=== PATIENT | male | born 1975 | race Caucasian/White ===

== ENCOUNTER 2024-05-16 19:49 | Emergency (ER) | payer OTHER, SELFPAY ==
[2024-05-16 19:53] VITALS: BP 135/78; PULSE 82; TEMP 36.7; O2SAT 95; BMI 33.9
--- NOTE | 2024-05-16 20:02 | XR_ITS ---
The [address] [address] Patient Name: ALEXANDR HANDLEY MRN: [id number] date: 1975 Sex: M Assigned Patient Location: ED.MAIN Current Patient Location: Accession/Order Number: [id number] Exam Date: 05/16/2024 20:20 Report Date: 05/16/2024 21:50 At the request of: JOSUE ROTHMAN Procedure: XR knee RT 4V EXAM: XR knee RT 4V , 05/16/2024 HISTORY: Right knee pain COMPARISON: None. TECHNIQUE: X-rays of the right knee, 4 views. FINDINGS: No fracture or dislocation right knee. Mild soft tissue swelling anteriorly. Small right knee joint effusion. Bones are well-mineralized. XR/XR knee RT 4V IMPRESSION: No fracture or dislocation right knee. Small right knee joint effusion. Electronically authenticated by: SAVANNAH HUGHES Date: 05/16/2024 21:50
--- NOTE | 2024-05-16 20:06 | ED.LOWEXI1 ---
HPI HPI - Extremity Injury (Lower) General Chief Complaint: Extremity Injury, Lower Stated Complaint: [facility] Lower Extremity Injury Time Seen by Provider: 05/16/24 19:51 Source: patient Mode of arrival: walk-in Limitations: no limitations History of Present Illness HPI Narrative: Patient is a 49-year-old male who presents to the emergency department from his place of employment for hyperextension injury to the right knee. He states he came down from a ladder and slipped on the floor and his right knee went out from underneath him and he hyperextended it. He complains of a popping sensation and pain to the right posterior knee. No other associated injuries or direct fall/injury. He received ibuprofen, ice and knee immobilizer from his employer and was brought to the ER. He states he is able to ambulate but reports pain with flexion of the right knee. Related Data Previous Rx's ?Medication ?Instructions ?Recorded methylprednisolone 4 mg tablets in See Rx Instructions .Route 05/16/24 a dose pack (Medrol (Nima)) .COMPLEX #21 ea Allergies Allergy/AdvReac Type Severity Reaction Status Date / Time No Known Drug Allergies Allergy Verified 05/16/24 19:57 Opioid HPI Opioid Management Most Recent Pain and Opioid Data: No Data to Display Review of Systems ROS Constitutional Denies: fever or chills Ears, nose, mouth, and throat Denies: throat pain or nasal congestion Cardiovascular Denies: chest pain Respiratory Denies: shortness of breath Gastrointestinal Denies: abdominal pain, nausea or vomiting Musculoskeletal Reports: extremity pain and extremity swelling; Denies: back pain or neck pain Integumentary/Breast Denies: rash Neurological Denies: numbness in extremities or weakness in extremities Hematologic/Lymphatic Denies: easy bruising or easy bleeding PFSH PFSH Social History Little interest or pleasure in doing things: not at all Feeling down, depressed, or hopeless: not at all Exam Narrative Exam Narrative: Gen.: Awake, alert, in no distress Head: Normocephalic, atraumatic ENT: Moist mucous membranes Respiratory: No respiratory distress Extremities: Limited flexion of the right knee, normal dorsiflexion and plantarflexion of the right lower extremity. No bony tenderness of the right ankle. No bony tenderness of the right anterior tibia, no patellar laxity or anterior knee tenderness. No obvious deformity, joint effusion or ecchymosis noted. Psych: Normal mood and affect Neuro: No focal neuro deficit Skin: Warm, dry, intact Constitutional Vital Signs, click to edit/add: Last Vital Signs Temp 98.1 F 05/16/24 19:53 Pulse 82 05/16/24 19:53 BP 135/78 05/16/24 19:53 Pulse Ox 95 05/16/24 19:53 O2 Del Method Room Air 05/16/24 19:53 Course Vital Signs Vital signs: Vital Signs Temperature 98.1 F 05/16/24 19:53 Pulse Rate 82 05/16/24 19:53 Blood Pressure 135/78 05/16/24 19:53 Pulse Oximetry 95 05/16/24 19:53 Oxygen Delivery Method Room Air 05/16/24 19:53 Temperature 98.1 F 05/16/24 19:53 Pulse Rate 82 05/16/24 19:53 Blood Pressure 135/78 05/16/24 19:53 Pulse Oximetry 95 05/16/24 19:53 Oxygen Delivery Method Room Air 05/16/24 19:53 MDM - Extremity Injury (Lower) MDM Narrative Medical decision making narrative: Patient with exam consistent with hyperextension injury, x-rays are unremarkable, reviewed by myself and attending physician. Patient placed in a knee brace. He has crutches and knee immobilizer from his employer. He was given prednisone in the ER and discharged with a prescription for Medrol Dosepak to follow-up with his occupational health at his employer. He is neurovascularly intact at discharge. He was also given a referral for orthopedics if needed. Rest, ice, elevate. Return to the ER if symptoms change or worsen. He was provided with light duty restrictions for work for the next 5 days. Medical Records Attestation: I reviewed the patient's medical records. Imaging Data XR knee: Attestation: I have reviewed the pertinent imaging results. Discharge Plan Discharge Chief Complaint: Extremity Injury, Lower Clinical Impression: Hyperextension injury of right knee Patient Disposition: Home, Self-Care Time of Disposition Decision: 21:13 Condition: Good Prescriptions / Home Meds: New methylprednisolone [Medrol (Nima)] 4 mg tablets,dose pack See Rx Instructions .ROUTE .COMPLEX Qty: 21 0RF Rx Instructions: Taper as directed Print Language: Mohawk Instructions: Crutch Instructions (ED), Knee Pain (ED) Additional Instructions: Follow up with occupational health at the [facility]; Orthopedic follow up if needed Referrals: Physician,Non-Staff, [Primary Care Provider] - 1 week Juan Hassan MD [Physician] - As needed
[2024-05-16] MEDS: PREDNISONE 20 MG TABLET 60 MG PO (20:17)
== END 2024-05-16 21:40 | disposition home or self-care (01) ==
PROVIDERS: Emergency Provider Emergency Medicine
DX: S89.81XA Other specified injuries of right lower leg, initial encounter (principal); W18.40XA Slipping, tripping and stumbling without falling, unspecified, initial encounter
CPT/HCPCS: 73564; 99283; J7512

== ENCOUNTER 2024-06-01 06:34 | Outpatient (OUT) | payer OTHER, SELFPAY ==
--- NOTE | 2024-06-01 | MR_ITS ---
[address] [address] Patient Name: ALEXANDR HANDLEY MRN: [facility]:[id number] date: 1975 Sex: M Assigned Patient Location: MRI Current Patient Location: MRI Accession/Order Number: [id number] Exam Date: 06/01/2024 06:48 Report Date: 06/04/2024 15:29 At the request of: NON-STAFF PHYSICIAN Procedure: MR knee RT wo con EXAM: MR knee RT wo con HISTORY: Pain in right knee COMPARISON: 05/16/2024 TECHNIQUE: MRI images obtained with multiple sequences. MRI of the right knee without contrast. Sequences obtained by standard department protocol. FINDINGS: Anterior cruciate and posterior cruciate ligaments are intact. Lateral meniscus is intact. Lateral compartment articular cartilage is preserved. Medial meniscus is intact. Medial compartment articular cartilage is preserved. Extensor mechanism is intact. Patellofemoral articular cartilage is preserved. No popliteal cyst. No acute fractures. No knee joint effusion. MR/MR knee RT wo con IMPRESSION: 1. Anterior cruciate and posterior cruciate ligaments are intact. 2. Medial and lateral menisci are intact. 3. No full-thickness chondral loss. 4. No acute fractures. Electronically authenticated by: AIME CARMICHAEL Date: 06/04/2024 15:29
--- OUTSIDE RECORDS SUMMARY | 2024-06-01 06:36 | XMS_ITS | CCD ---
Author Organization [facility] Inform ion Partnership [facility] Care Team Providers Care Milk Drier Name Role Phone HOUSE, ALLY Unavailable Unavailable HOUSE, ALLY Unavailable Unavailable HOUSE, ALLY Unavailable Unavailable HOUSE, DO ALLY P Attending Unavailable HOUSE, ALLY P Primary Care Unavailable Problems Active Problems Problem Classification Problem Date Documented Da te Episodic/Chronic Poisoning by nonmedicinal substances (1 source) Toxic effect of venom of other arthropod, accidental (unintentional), initial encounter; Translations: [TOX EFF VNOM OTH ARTHROPOD ACC INIT] Onset: 03-13-2017 Past or Other Problems Problem Classification Problem Date Documented Da te Episodic/Chronic Other skin disorders (4 sources) Rash and other nonspecific skin eruption; Translations: [RASH OTH NONSPECIFIC SKIN ERUPTION] Onset: 03-07-2017 Episodic Results Test Name Value Interpretation Reference Range Facil ity Patient Handouton 05-23-2024 Patient Handout [id number][facility] Data on 05-23-2024 Patient Provided Health Data [id number]#1.0 [facility] LY[facility] ABon 03-09-2017 Lyme IgG WBlot Test Not Indicated Abnormal NEGAT [facility] Comment on above: Performed By: #### L YME ####[facility] [address] [place], [place] [address]Bhmtnu Karen Lyme IgG/IgM AB Negative Normal NEGAT [facility] Comment on above: Result Comment: Abse nce of detectable Borrelia burgdorferi antibodies. A negativeresult doesnot exclude the possibility of Borrelia burgdorferi infection. Ifearly Lymedisease is suspected, a second sample should be collected andtested two to four weeks later. Performed By: #### L YME ####[facility] [address] [place], [place] [address]DaajfoGumaro Hanna Lyme IgM Bands Test Not Indicated Normal [facility] Comment on above: Performed By: #### L YME ####[facility] [address] [place], [place] [address]RmgckrGumaro Hanna Lyme IgM WBlot Test Not Indicated Abnormal NEGAT [facility] Comment on above: Performed By: #### L YME ####[facility] [address] [place], [place] [address]LozdjpGumaro Hanna Lyme Interp No evidence of antibodies to Borrelia burgdorferi. Normal LMNOBB [facility] Comment on above: Result Comment: Test Performed By: [facility] [employer] [address] [place] [address] [employer]chand[employer] For Res[employer] Purchasing Agent: Cristiane Roque MD, PhD Performed By: #### L YME ####[facility] [address] [place], [place] [address]UtsypmGumaro Hanna Encounters Encounter Date Encounter Type Care Provider Facility Start: 05-23-2024 End: 05-23-2024 ambulatory [facility] Facility:[facility] Cli rafia Start: 03-07-2017 End: 03-08-2017 Ambulatory [facility] Facility: Payers Date Payer Category Payer Unknown [id number] 1975 Unknown [id number] 1957 Unknown [id number] Summary Purpose Family History No Family History Records FoundNo Family History Records Found Advance Directives No Advanced Directives Records FoundNo Advanced Directives Records Found Additional Source Comments (unrecognized sect ion and content) No Status Records FoundNo Status Records Found INFORMATION SOURCE (unrecogn ized section and content) DATE CREATED AUTHOR 01/18/2018 [facility] DATE CREATED AUTHOR AUTHOR'S ORGANIZ ATION 05/24/2024 [facility] FOR RECORDS PERTAINING TO PATIENTS WHO ARE OR HAVE BEEN ENROLLED IN A CHEMICAL DEPENDENCY/SUBSTANCEABUSE PROGRAM, SOME INFORMATION MAY BE OMITTED. This clinical summary was aggregated from multiple sources. Caution should be exercised in using it in the provision of clinical care. This summary normalizes information from multiple sources, and as a consequence, information in this document may materially change the coding, format and clinical context of patient data. In addition, data may be omitted in some cases. CLINICAL DECISIONS SHOULD BE BASED ON THE PRIMARY CLINICAL RECORDS. [employer] [facility]. provides no warranty or guarantee of the accuracy or completeness of information in this document.
--- NOTE | 2024-06-01 06:52 | XR_ITS ---
The [address] [address] Patient Name: ALEXANDR HANDLEY MRN: [id number] date: 1975 Sex: M Assigned Patient Location: MRI Current Patient Location: MRI Accession/Order Number: [id number] Exam Date: 06/01/2024 06:57 Report Date: 06/01/2024 07:36 At the request of: NON-STAFF PHYSICIAN Procedure: XR foreign body eye REAGAN EXAMINATION: XR foreign body eye REAGAN HISTORY: Foreign Body Eye COMPARISON: No relevant comparison available. FINDINGS: ORBITS: Negative for a metallic foreign body. OTHER: Negative. XR/XR foreign body eye REAGAN IMPRESSION: 1. No metallic foreign body within the orbits. Electronically authenticated by: ORLANDO TURK Date: 06/01/2024 07:36
== END 2024-06-01 06:35 | disposition home or self-care (01) ==
LOC: MRI 06:34
DX: M25.561 Pain in right knee (principal)
CPT/HCPCS: 70030; 73721

== ENCOUNTER 2025-04-12 11:59 | Outpatient (OUT) | payer OTHER, SELFPAY ==
--- OUTSIDE RECORDS SUMMARY | 2025-04-12 12:06 | XMS_ITS | CCD ---
Author Organization [facility] Inform ion Partnership [facility] Care Team Providers Care Fourchette Sewer Name Role Phone HOUSE, ALLY Unavailable Unavailable [...] Facil ity Patient Handouton 05-23-2024 Patient Handout [id number]ided [facility] Data on 05-23-2024 Patient Provided Health Data [id number] [facility] LYME ABon 03-09-2017 Lyme IgG WBlot Test Not Indicated Abnormal NEGAT [facility] Comment on above: Performed By: #### L YME ####[facility] [address] [place], [place] [address]Ovbrum Karen Lyme IgG/IgM AB Negative Normal NEGAT [facility] Comment on above: Result Comment: Abse nce of detectable Borrelia burgdorferi antibodies. A negativeresult doesnot exclude the possibility of Borrelia burgdorferi infection. Ifearly Lymedisease is suspected, a second sample should be collected andtested two to four weeks later. Performed By: #### L YME ####[facility] [address] [place], [place] [address]OnvgznGumaro Hanna Lyme IgM Bands Test Not Indicated Normal [facility] Comment on above: Performed By: #### L YME ####[facility] [address] [place], [place] [address]WsfpshGumaro Hanna Lyme IgM WBlot Test Not Indicated Abnormal NEGAT [facility] Comment on above: Performed By: #### L YME ####[facility] [address] [place], [place] [address]OhfahaGumaro Hanna Lyme Interp No evidence of antibodies to Borrelia burgdorferi. Normal LMNOBB [facility] Comment on above: Result Comment: Test Performed By: [facility] [employer] [address] [place] [address] Foundry Helper: Cristiane Roque MD, PhD Performed By: #### L YME ####[facility] [address] [place], [place] [address]QcukchGumaro Hanna Encounters Encounter Date Encounter Type Care Provider Facility Start: 05-23-2024 End: 05-23-2024 ambulatory [facility] Facility:[facility] Cli rafia Start: 03-07-2017 End: 03-08-2017 Ambulatory [facility] Facility: Payers Date Payer Category Payer Unknown [id number] 1975 Unknown [id number] 1957 Unknown [id number] Summary Purpose Family History No Family History Records FoundNo Family History Records Found Advance Directives No Advanced Directives Records FoundNo Advanced Directives Records Found Additional Source Comments (unrecognized sect ion and content) No Status Records FoundNo Status Records Found INFORMATION SOURCE (unrecogn ized section and content) DATE CREATED AUTHOR 01/18/2018 [facility] DATE CREATED AUTHOR AUTHOR'S ORGANIZ ATION 05/24/2024 [facility] FOR RECORDS PERTAINING TO PATIENTS WHO ARE [...] BE BASED ON THE PRIMARY CLINICAL RECORDS. [employer] [facility]. provides no warranty or guarantee of the accuracy or completeness of information in this document.
[2025-04-12 12:44] LABS: Hematocrit 43.9 % (42.0-54.0); Hemoglobin 15.3 g/dL (14.0-18.0); Immature Granulocytes Abs Auto 0.01 10^3/uL (0.00-0.03); Immature Granulocytes Pct Auto 0.2 % (0.0-0.5); Lymphocytes Absolute Auto 1.6 10^3/uL (1.2-3.8); Mean Corpuscular HGB Conc 34.9 g/dL (29.9-35.2); Mean Corpuscular Hemoglobin 30.2 pg (25.9-34.0); Mean Corpuscular Volume 86.6 fL (80.0-94.0); Platelet Count 272 10^3/uL (150-450); Red Blood Count 5.07 10^6/uL (4.70-6.10); White Blood Count 6.0 10^3/uL (4.0-11.0)
[2025-04-12 13:34] LABS: Alanine Aminotransferase 21 U/L (16-63); Albumin Globulin Ratio 1.0; Albumin Level 3.6 g/dL (3.4-5.0); Alkaline Phosphatase 85 U/L (46-116); Anion Gap 12.2; Aspartate Amino Transferase 22 U/L (15-37); Blood Urea Nitrogen 18.0 mg/dL (7.0-18.0); Calcium 8.4 mg/dL (8.5-10.1); Carbon Dioxide 27.8 mmol/L (21.0-32.0); Chloride 104 mmol/L (98-107); Cholesterol 125 mg/dL (<=200); Estimated GFR (African America >60 (>=60 mL/min/1.73m^2); Estimated GFR (Non-African Ame >60 (>=60 mL/min/1.73m^2); Free T3 2.08 pg/mL (2.18-3.98); Globulin 3.5 g/dL; Glucose 85 mg/dL (74-106); HDL Cholesterol 45 mg/dL (40-60); Potassium 4.0 mmol/L (3.5-5.1); Sodium 140 mmol/L (136-145); Thyroid Stimulating Hormone 3.407 uIU/mL (0.358-3.740); Total Protein 7.1 g/dL (6.4-8.2); Triglycerides 132 mg/dL (<=150); Uric Acid 4.9 mg/dL (3.5-7.2); VLDL CHOLESTEROL 26.4 mg/dL
== END 2025-04-12 12:00 | disposition home or self-care (01) ==
LOC: LAB 12:02
PROVIDERS: PCP Family Medicine; Visit Provider Family Medicine
DX: Z00.00 Encounter for general adult medical examination without abnormal findings (principal); Z12.5 Encounter for screening for malignant neoplasm of prostate
CPT/HCPCS: 36415; 80053; 80061; 83036; 83525; 84436; 84443; 84481; 84550; 85025; G0103